=== PATIENT | male | born 1975 | race Two or more races ===

== ENCOUNTER 2017-02-08 15:12 | Emergency (ER) | payer SELFPAY ==
[~2017-02-08] VITALS: Ht 175.3 cm; Wt 90.7 kg
[2017-02-08] MEDS ORDERED: KETOROLAC TROMETH 60MG/2ML VIAL IM ONE (17:30)
[2017-02-08] MEDS ORDERED: HYDROcodone-ACET 10/325MG TAB PO ONE (17:30)
[2017-02-08] MEDS ORDERED: SODIUM CHLORIDE 0.9% 1,000 ML IV ONE (17:55)
[2017-02-08 18:36] LABS: Basophils # (auto) 0 uL; CONDITION Y; Eosinophils # (auto) 0 uL; Hematocrit 41.3 % (41.0-53.0); Hemoglobin 13.8 g/dL (13.5-17.5); Lymphocytes # (auto) 0.4 uL; Lymphocytes % (auto) 2.4 % (10.0-50.0); Mean Corpuscular Hemoglobin 28.3 pg (28.0-32.0); Mean Corpuscular Hgb Conc. 33.4 g/dL (32.0-36.0); Mean Corpuscular Volume 84.6 fL (80.0-100.0); Mean Platelet Volume 9.5 fL (7.4-10.4); Monocytes # (auto) 0.7 uL; Monocytes % (auto) 3.8 % (0.0-12.0); Neutrophils # (auto) 17.1 uL; Neutrophils % (auto) 93.8 % (37.0-80.0); Platelet Count (auto) 246 10^3/uL (140-450); Red Cell Distribution Width 13.9 % (11.6-16.0); White Blood Cell 18.3 10^3/uL (4.4-10.8)
[2017-02-08 18:49] LABS: INR 0.96 (0.9-1.15); Partial Thromboplastin Time 22.9 sec (22.64-33.71); Prothrombin Time 10.5 sec (9.37-12.3)
[2017-02-08 18:51] LABS: Albumin 4.5 g/dL (3.4-5.0); BUN/Creatinine Ratio 19.1; Bilirubin, Total 0.5 mg/dL (0.2-1.0); Calcium 8.6 mg/dL (8.5-10.1); Potassium 4.4 mmol/L (3.5-5.1); Total Protein 7.7 g/dL (6.4-8.2)
[2017-02-08] MEDS ORDERED: cefTRIAXone 1GM/50ML D5W 50 ML IV ONE (19:00)
[2017-02-08] MEDS ORDERED: ONDANSETRON HCL 4 MG/2 ML VIAL IV ONE (20:00)
[2017-02-08] MEDS ORDERED: HYDROmorphone HCL 2 MG/ML VL IV ONE ×2 (20:00→21:00)
[2017-02-08] MEDS ORDERED: LORazepam 2MG/ML-1ML VIAL IV ONE (21:00)
[2017-02-08 22:01] LABS: Urine Bilirubin Negative (Negative); Urine Color Yellow (Yellow); Urine Glucose Normal (Normal); Urine Granular Cast FEW /lpf (0); Urine Hyaline Cast FEW /lpf (0 - 2); Urine Ketone Negative (Negative); Urine Mucus FEW (None Seen); Urine Nitrite Negative (Negative); Urine RBC 5 /hpf (0 - 3); Urine Urobilinogen Normal (Negative); Urine pH 5.5 (5.0-8.0)
[2017-02-08 22:36] LABS: Urine Blood 1+ /uL (Negative)
[2017-02-09] MEDS ORDERED: IPRATROPIUM BROM 0.5 MG/2.5ML INH SOL NEB ONE (01:00)
[2017-02-09] MEDS ORDERED: cefTRIAXone 1GM/50ML D5W 50 ML IV ONE (01:00)
[2017-02-09] MEDS ORDERED: ALBUTEROL SULF 2.5 MG/0.5ML(0.5%) NEB SOLN NEB ONE (01:00)
[2017-02-09 01:30] VITALS: BP 127/89
== END 2017-02-09 01:56 | disposition home or self-care (01) ==
LOC: ER 15:20
DX: S22.42XA Multiple fractures of ribs, left side, initial encounter for closed fracture (principal); M54.9 Dorsalgia, unspecified; R06.02 Shortness of breath; J94.2 Hemothorax; Y92.89 Other specified places as the place of occurrence of the external cause; Y99.8 Other external cause status; W11.XXXA Fall on and from ladder, initial encounter; Y93.39 Activity, other involving climbing, rappelling and jumping off
CPT/HCPCS: 32551; 36415; 71010; 71250; 72040; 72070; 72100; 80053; 81001; 85025; 85610; 85730; 93005; 94640; 96361; 96372; 96374; 96375; 96376; 99291; J0696; J1170; J1885; J2060; J2405; J7030